=== PATIENT | female | born 1940 | race Caucasian/White ===

== ENCOUNTER → 2020-08-10 | Outpatient (CLI) | payer MEDICARE, BC | END | disposition home or self-care (01) | LOC: LABPAT 11:27 | PROVIDERS: ATTEND Orthopaedic Surgery | DX: Z01.812 Encounter for preprocedural laboratory examination (principal) | CPT/HCPCS: 87070 ==

== ENCOUNTER 2020-08-17 08:11 | Day surgery (SDC) | payer MEDICARE, BC ==
[2020-08-11 14:59] VITALS: BMI 31.1
--- NOTE | 2020-08-16 12:06 | HP ---
HISTORY AND PHYSICAL REASON FOR ADMISSION: Surgery scheduled for 08/17/2020 HISTORY OF PRESENT ILLNESS: Marlene Hansen is a 79-year-old patient seen with progressive right knee pain. Options for treatment were discussed with her. She elected to proceed with right total knee arthroplasty. Consent was obtained. Clearance was provided by Dr. Denson. PAST MEDICAL HISTORY: Hypertension, hypothyroidism, Hyperlipidemia. PAST SURGICAL HISTORY: Appendectomy, cholecystectomy. MEDICATIONS ARE: Amlodipine, levothyroxine, lisinopril, atorvastatin, tramadol. ALLERGIES: None. SOCIAL HISTORY: She denies tobacco use. PHYSICAL EVALUATION OF THE RIGHT KNEE: Range of motion 0-120. Mild effusion. Tenderness along the medial compartment. Crepitus medial patellofemoral compartments with range of motion. Pain with patellofemoral compression. Ligaments stable. Hip rotation is without pain. Her distal neurovascular exam is intact. RADIOGRAPHS: Right knee radiographs reveal severe osteoarthritic changes. IMPRESSION: 1. Right knee osteoarthritis. 2. Hyperlipidemia. 3. Hypothyroidism. PLAN: Right total knee arthroplasty. Surgery 08/17/2020. MMODL / IJN: [id number] /
[~2020-08-17 08:11] MED LIST: ACETAMINOPHEN TAB 500 MG TAB PO PRN; DEXAMETHASONE SOD PHOSPHATE 4 MG/ML 1 ML VIAL IV ONE; LIDOCAINE 1% (10MG/ML) FOR IV START INTRADERMA PRN; MELOXICAM 7.5 MG TAB PO PRN; MIDAZOLAM 2 MG/2 ML VIAL IV PRN; ONDANSETRON 4 MG/2 ML VIAL IVP ONE; ROPIVACAINE/EPI/CLONIDINE/KET 50 ML SYRINGE MISCELLANE PRN; TRANEXAMIC ACID 1,000 MG in SODIUM CHLORIDE 0.9% 100 ML IVPB PRN; fentaNYL (PF) 50 MCG/ML 2 ML AMP IVP PRN
[2020-08-17] MEDS: LACTATED RINGERS 1,000 ML IV SCH ×2 (09:26→18:02)
[2020-08-17] MEDS ORDERED: MIDAZOLAM 2 MG/2 ML VIAL IVP ONE (09:45)
[2020-08-17] MEDS ORDERED: PROPOFOL 10 MG/ML 20 ML VIAL IV ONE (10:00)
[2020-08-17] MEDS ORDERED: ROPIVACAINE 5 MG/ML 30 ML VIAL ONE (10:00)
[2020-08-17] MEDS ORDERED: MIDAZOLAM 2 MG/2 ML VIAL ONE (10:00)
[2020-08-17] MEDS ORDERED: fentaNYL (PF) 50 MCG/ML 2 ML AMP ONE (10:00)
--- NOTE | 2020-08-17 10:51 | P.ANPRN ---
Procedure Note - Anesthesia - Nerve Block Performed Right Adductor Canal Infusion Time Out Performed: Yes Date of Procedure: 08/17/20 Location of Patient: PreOp Indication: Acute Post-Operative Pain, Requested by Surgeon Sedation Type: Sedate with meaningful contact maintained Preparation: Sterile Prep, Sterile Dressing Position: Supine Catheter: Indwelling Needle Types: [place] Needle Gauge: 21 Ultrasound used to visualize needle placement: Yes Ultrasound used to observe medication spread: Yes Blood Aspirated: No Pain Paresthesia on Injection Noted: No Resistance on Injection: Normal Image Stored and Saved: Yes Events: Uneventful and Well Tolerated (ropi .5% 20 cc plus dexamethason 4mg)
--- NOTE | 2020-08-17 10:58 | P.ANPRN ---
Procedure Note - Anesthesia - Nerve Block Performed Right [place] Single Time Out Performed: Yes Date of Procedure: 08/17/20 Procedure Start Time: 09:54 Procedure Stop Time: 09:58 Location of Patient: PreOp Indication: Acute Post-Operative Pain, Requested by Surgeon Sedation Type: Sedate with meaningful contact maintained Preparation: Sterile Prep Position: Supine Needle Types: [place] Needle Gauge: 21 Ultrasound used to visualize needle placement: Yes Ultrasound used to observe medication spread: Yes Blood Aspirated: No Pain Paresthesia on Injection Noted: No Resistance on Injection: Normal Image Stored and Saved: Yes Events: Uneventful and Well Tolerated (ropi .5% 20cc)
[2020-08-17] MEDS ORDERED: HYDROmorphone 0.5 MG/0.5 ML SYRINGE IVP PRN ×2 (11:42)
[2020-08-17] MEDS ORDERED: NALOXONE 0.4 MG/ML 1 ML VIAL IV PRN (11:42)
[2020-08-17] MEDS ORDERED: HYDROmorphone 0.2 MG/1 ML SYRINGE IVP PRN (11:42)
[2020-08-17] MEDS ORDERED: ONDANSETRON 4 MG/2 ML VIAL IVP PRN (11:42)
[2020-08-17] MEDS ORDERED: HYDROcodone/APAP 5-325MG 1 EACH TAB PO PRN (11:42)
--- NOTE | 2020-08-17 11:42 | P.OP ---
Date of Procedure: 08/17/20 Preoperative Diagnosis: Right knee osteoarthritis Postoperative Diagnosis: Right knee osteoarthritis Procedure(s) Performed: Right total knee arthroplasty Implants: 1. Depuy attune size 5 narrow right cruciate retaining cemented femur 2. Depuy attune size 5 fixed bearing cemented tibial baseplate 3. Depuy attune size 5 fixed bearing cruciate retaining 12 mm polyethylene tibial insert 4. Depuy attune 35 mm all polyethylene cemented patella Anesthesia: local (Adductor canal catheter, I pack block), spinal Surgeon: Juventino Dietz Geriatrician #1: Pb Escamilla Estimated Blood Loss (ml): 50 Pathology: other (Bone) Condition: stable Disposition: PACU Indications for Procedure: 79-year-old patient seen with symptomatic right knee osteoarthritis. After treatment options were discussed, she elected to proceed with total knee arthroplasty Operative Findings: See description of procedure Description of Procedure: Patient was taken to the operative suite after having an adductor canal catheter placed by the department of anesthesia. Patient underwent a [] anesthetic by the department of anesthesia. Patient was given preoperative IV intake antibiotics and TXA. A well-padded tourniquet was placed about the [] lower extremity. The lower extremity was then prepped and draped in the normal sterile orthopedic fashion. The extremity was elevated, a tourniquet was insufflated to 300. A standard anterior incision was made sharply through skin. Dissection was taken down through the subcutaneous soft tissues down to the extensor mechanism. A medial arthrotomy was performed, patella was everted and knee was flexed. There was advanced osteoarthritis noted. I introduced my distal intramedullary femoral drill. I then introduced the distal femoral cutti ng jig. Castillo FREEMAN secured the cutting jig with 2 pins. I held retractors in position while Castillo FREEMAN performed the distal femoral resection through the guide area we now removed her distal femoral cutting guide. We now placed our 4-in-1 femoral cutting block and positioned and it was secured with 2 pins by Castillo FREEMAN while I held the block in position. The distal femoral finishing was now completed. A proximal tibial cutting guide was positioned. I held the guide in the appropriate position with both hands well Castillo FREEMAN inserted stabilizing pins into the guide. Proximal tibial cut was made. We now placed a trial femoral component into position, along with an appropriate size tibial tray and insert. We now took the knee through range of motion and had full extension good flexion and good overall soft tissue balance noted. The patella was everted and stabilized with 2 towel clips held by Castillo FREEMAN while I performed a flush with patellar quad tendon utilizing a fresh sawblade. We templated the patella, appropriate drill holes were made. An appropriate trial patella was positioned, knee was taken through full range of motion with the patella tracking very nicely. The trial patella was removed. Drill holes were made through the femoral component. All trial components were removed after marking off the appropriate rotation of the tibia. Retractors were now positioned along the proximal tibia. An appropriate keel punch was made with the appropriate size tibial guide by myself on Castillo FREEMAN assisted by holding retractors. At this point appropriate size implants were chosen and opened. The joint was irrigated copiously with pulse lavage mechanical irrigation. The posterior capsule was infiltrated with local analgesic. The wound was irrigated with pulse lavage mechanical irrigation. We mixed antibiotic methylmethacrylate. We placed the knee into flexion. We placed multiple retractors assisted by Castillo FREEMAN to expose the proximal tibia. Once the methyl methacrylate was ready, the tibial component was cemented into place removing any excess methylmethacrylate form by both myself and Castillo FREEMAN. The femoral component was cemented into place removing the removing any excess methylmethacrylate performed by both myself and Castillo FREEMAN. We then inserted the appropriate size polyethylene tibial insert. We made sure that it was locked into position. We took the knee into full extension, and then back in a flexion making sure we had removed any excess methylmethacrylate. The patellar component was then cemented down and secured with clamp. Excess methylmethacrylate removed. We kept the knee in full extension, patellar clamp in position until methylmethacrylate had hardened. Once it had hardened the patellar clamp was removed. The knee was taken through full range of motion. The patella tracked nicely. There was good soft tissue balancing. The tourniquet was now released. Additional hemostasis was achieved via electrocautery. A second gram of TXA was given. The wound again was irrigated with pulse lavage mechanical irrigation. The superficial soft tissues were infiltrated local analgesic. The extensor mechanism was repaired with Ethibond. We checked the repair with range of motion and it was stable. The subcutaneous soft tissues were repaired with Vicryl in layers. The skin was approximated with pernio/Dermabond. Sterile dressings were applied followed by loose web roll and Arnie bandage. The patient was transferred to a bed, and taken to recovery in stable and satisfactory condition. Castillo FREEMAN assisted with this complex procedure.
[2020-08-17] MEDS ORDERED: LACTATED RINGERS 1,000 ML IV ONE (11:53)
[2020-08-17] MEDS ORDERED: ROPIVACAINE 0.2%-NS ON-Q PUMP 2 MG/ML EACH MISCELLANE ONE (12:18)
--- NOTE | 2020-08-17 13:38 | XR ---
EXAMINATION TYPE: XR knee limited RT DATE OF EXAM: 08/17/2020 CLINICAL HISTORY: Right knee pain and arthritis status post total knee replacement. TECHNIQUE: Portable AP and crosstable lateral views of the right knee are obtained immediately posto peratively. COMPARISON: Outside right knee x-ray July 10, 2020 FINDINGS: Metallic hardware from total right knee arthroplasty is seen and appears satisfactory in a lignment and position. There is evidence of recent surgery with diffuse subcutaneous gas and soft ti ssue swelling noted. Improved alignment after replacement noted. IMPRESSION: METALLIC HARDWARE FROM TOTAL RIGHT KNEE ARTHROPLASTY IS SATISFACTORY IN ALIGNMENT.
[2020-08-17] MEDS: HYDROcodone/APAP 7.5-325MG 1 EACH TAB PO PRN ×2 (15:48→21:18)
[2020-08-17] MEDS: SODIUM CHLORIDE 0.9% 1,000 ML IV SCH (15:51)
[2020-08-17] MEDS ORDERED: LISINOPRIL-HCTZ 20-12.5 MG 1 EACH TAB PO SCH (21:00)
[2020-08-17] MEDS ORDERED: SENNOSIDES-DOCUSATE SODIUM 1 EACH TAB PO SCH (21:00)
[2020-08-17] MEDS ORDERED: CYCLOBENZAPRINE 5 MG TAB PO SCH (21:00)
[2020-08-17] MEDS: ENOXAPARIN 30 MG/0.3 ML SYRINGE SQ SCH (23:35)
[2020-08-18] MEDS: HYDROcodone/APAP 7.5-325MG 1 EACH TAB PO PRN ×2 (02:21→12:15)
[2020-08-18 04:41] VITALS: BP 109/70; PULSE 68; RESP 18; TEMP 97.8
[2020-08-18 05:27] LABS: Basophils % (A) 0 %; Eosinophils % (A) 0 %; HCT 37.7 % (34.0-46.0); HGB 12.7 gm/dL (11.4-16.0); Lymphocytes # (A) 1.2 k/uL (1.0-4.8); Lymphocytes % (A) 8 %; MCH 31.7 pg (25.0-35.0); MCHC 33.6 g/dL (31.0-37.0); MCV 94.3 fL (80.0-100.0); Mean Platelet Volume 7.8; Monocytes # (A) 0.8 k/uL (0-1.0); Monocytes % (A) 6 %; Neutrophils # (A) 12.1 k/uL (1.3-7.7); Neutrophils % (A) 85 %; Platelet Count 273 k/uL (150-450); RDW 12.1 % (11.5-15.5); WBC 14.1 k/uL (3.8-10.6)
[2020-08-18] MEDS ORDERED: LEVOTHYROXINE 50 MCG TAB PO SCH (06:30)
[2020-08-18] MEDS ORDERED: amLODIPine 2.5 MG TAB PO SCH (09:00)
[2020-08-18] MEDS ORDERED: ATORVASTATIN 10 MG TAB PO SCH (09:00)
--- NOTE | 2020-08-18 09:01 | P.PN ---
Progress Note - Text 08/18/20 653a m Femur status post total knee replacement by Dr. Dietz. Patient has an On-Q pump for postop pain control with the solution running at 8 mL an hour with a VAS of 4.. Pain is primarily located in the posterior aspect of the knee, patient is ambulating and exercising. Dressing clean dry and intact. Plan to continue On-Q pump infusion
--- NOTE | 2020-08-18 09:52 | P.PN ---
Subjective Progress Note Date: 08/18/20 Principal diagnosis: Status post right total knee arthroplasty Patient was examined today at bedside, she is resting comfortably in her hospital bed. She is done very well physical therapy. She is urinating with no difficulties. She denies any headaches, lightheadedness, chest pain or shortness of breath. Objective - Vital Signs Vital signs: Vital Signs Temp 97.8 F 08/18/20 04:40 Pulse 68 08/18/20 04:40 Resp 18 08/18/20 04:40 BP 109/70 08/18/20 04:40 Pulse Ox 95 08/18/20 04:40 Intake & Output 08/17/20 08/18/20 08/18/20 18:59 06:59 18:59 Intake Total 1200 1600 Output Total 50 Balance 1150 1600 Weight 76.158 kg Intake: IV 1200 Intake, IV Titration 600 Amount Sodium Chloride 0.9% 1, 600 000 ml @ 50 mls/hr IV . Q20H [facility] Rx#:[id number] Oral 1000 Output: Estimated Blood Loss 50 Other: Voiding Method Toilet Toilet # Voids 1 3 - Exam Right lower extremity: Incision is clean, dry, and intact. The foam dressing is in good condition. There is minimal soft tissue swelling and ecchymosis surrounding the medial and lateral aspects of the incision. Calf is soft, no tenderness with palpation. Plantar flexion, dorsiflexion, EHL, FHL are intact. Sensory exam to light touch throughout the extremity is intact, dorsal pedis pulses 2+. - Labs CBC & Chem 7: 08/18/20 04:51 Labs: Abnormal Lab Results - Last 24 Hours (Table) 08/18/20 Range/Units 04:51 WBC 14.1 H (3.8-10.6) k/uL Neutrophils # 12.1 H (1.3-7.7) k/uL Assessment and Plan Assessment: Postoperative day #1 status post right total knee arthroplasty Plan: Pain control, plan for discharge home on [place] 7.5 mg/325 mg GI and DVT prophylaxis, aspirin 81 mg twice a day for a month Wound care instructions were discussed Ice and elevating techniques discussed Home physical therapy and nursing after discharge Medical recommendations Plan for discharge home today Time with Patient: Less than 30
--- NOTE | 2020-08-18 09:56 | P.DS ---
Providers Date of admission: 08/17/2020 Expected date of discharge: 08/18/20 Attending physician: Juventino Dietz Consults: 08/17/20 11:42 Consult Physician Routine Consulting Provider: Paras Coleman Consult Reason/Comments: medical management Do you want consulting provider notified?: Yes Primary care physician: Ari Denson [facility] Course: Date of admission: 08/17/2020 Date of discharge: 08/18/2020 Admission diagnosis: Status post right total knee arthroplasty Discharge diagnosis: Same Attending physician: Dr. Dietz Surgical procedures: Right total knee arthroplasty Brief history: Patient is a 79-year-old female with a history of is a primary right knee osteoarthritis. At this point patient has failed conservative treatment measures and has opted to proceed with a elective right total knee arthroplasty. Hospital course: Details of patient's surgery can be found in operative report. Patient tolerated the procedure well and was subsequently transported to orthopedic floor. Patient's orthopeidc and medical care was provided daily. Patient had daily laboratory tests performed for evaluation of overall blood counts. Patient had daily physical therapy to include strengthening range of motion as well as education with walker ambulation. Patient was treated with Lovenox for their postoperative DVT prophylaxis during their inpatient stay. Ruthie fuentes was noted to have a relatively uneventful postoperative course. Patient reported satisfactory pain control with oral pain medications by postoperative day 0. Patient showed satisfactory progress with physical therapy. Patient moved steadily through the program and had no difficulty meeting the goals by postoperative day 1. Given patient's otherwise satisfactory course and having met physical therapy goals, plan is to discharge patient home on postoperative day 1. Discharge condition/disposition: Patient will be discharged home in stable condition. Discharge medications: Instructions are given on resumption of patient's normal daily medications per primary care recommendation, in addition patient will be prescribed [place] 7.5 mg/325 mg, aspirin 81 mg. Discharge instructions: 1. Wound care and infection precautions, keep incision dry and covered while showering, no lotions, creams, moisturizers. No soaking, tubs, pools, hottubs. Do not scrub over the incision. 2. Weight-bear as tolerated with walker / cane until follow-up. 3. Ice and elevate when necessary. Do not exceed 20 minutes per hour with ice pack. 4. Utilize compression sleeve until seen at first follow up appointment. 5. Visiting nursing care. 6. Home physical therapy including home CPM. 7. Pain meds and anticoagulants per prescription. 8. Pain medication has potential to cause constipation. Increase oral fluid and fiber intake. Contact primary care provider if you have not had a bowel movement within 48 hours after discharge 9. No anti-inflammatory medication until discussed at first post operative visit, this including Motrin, Aleve, Mobic, Diclofenac. 10. Follow up in office at 2 weeks postop with Castillo Escamilla PA-C/Renny Sim 11. Follow up with your primary care doctor 7-10 days after discharge. 12. Contact [facility] with any questions, . Procedures: right total knee arthroplasty Patient Condition at Discharge: Good Plan - Discharge Summary Discharge Rx Participant: No New Discharge Prescriptions: New HYDROcodone/APAP 7.5-325MG [[place] 7.5] 1 each PO Q6HR PRN #28 tab PRN Reason: Pain Aspirin [Adult Low Dose Aspirin EC] 81 mg PO BID #60 tablet. No Action Lisinopril-Hctz 20-12.5 mg [Zestoretic 20-12.5] 1 tab PO HS Levothyroxine Sodium [Synthroid] 50 mcg PO QAM traMADol HCL 25 mg PO HS PRN PRN Reason: Pain amLODIPine [Norvasc] 2.5 mg PO QAM Rosuvastatin Calcium [Crestor] 5 mg PO DAILY Cyclobenzaprine [Flexeril] 5 mg PO HS Discharge Medication List Cyclobenzaprine [Flexeril] 5 mg PO HS 08/11/20 [History] Levothyroxine Sodium [Synthroid] 50 mcg PO QAM 08/11/20 [History] Lisinopril-Hctz 20-12.5 mg [Zestoretic 20-12.5] 1 tab PO HS 08/11/20 [History] Rosuvastatin Calcium [Crestor] 5 mg PO DAILY 08/11/20 [History] amLODIPine [Norvasc] 2.5 mg PO QAM 08/11/20 [History] traMADol HCL 25 mg PO HS PRN 08/11/20 [History] Aspirin [Adult Low Dose Aspirin EC] 81 mg PO BID #60 tablet. 08/18/20 [Rx] HYDROcodone/APAP 7.5-325MG [[place] 7.5] 1 each PO Q6HR PRN #28 tab 08/18/20 [Rx] Follow up Appointment(s)/Referral(s): [facility] [NON-STAFF] - 1 Week Pb Escamilla PAC [PHYSICIAN MULTIPLE DRILL OPERATOR] - 2 Weeks Activity/Diet/Wound Care/Special Instructions: Orthopedic Discharge Instructions: 1. Wound care and infection precautions, keep incision dry and covered while showering, no lotions, creams, moisturizers. No soaking, pools, hot tubs. Do not scrub over incision. 2. Weight-bear as tolerated with walker / cane until follow-up. 3. Ice and elevate when necessary. Do not exceed 20 minutes per hour with ice pack. 4. Utilize compression sleeve until seen at first follow up appointment. 5. Pain meds and anticoagulants per prescription. 6. Pain medication has potential to cause constipation. Increase oral fluid and fiber intake. Contact primary care provider if you have not had a bowel movement within 48 hours after discharge. 7. No anti-inflammatory medication until discussed at first post operative visit, this including Motrin, Aleve, Mobic, Diclofenac. 8. Follow up in office at 2 weeks postop with Castillo Escamilla PA-C/Renny Salomon PA-C 9. Follow up with your primary care doctor 7-10 days after discharge. 10. Contact [facility] with any questions, . Wound care instructions: 1. Keep incision covered and dry well-controlled dressing is in place 2. Okay to remove foam dressing on 08/28/2020 3. Please keep incision covered and dry even after foam dressing is removed and seen for first postop Discharge Disposition: HOME WITH HOME HEALTH SERVICES
[2020-08-18] MEDS: SODIUM CHLORIDE 0.9% 1,000 ML IV SCH (11:53)
[2020-08-18] MEDS: ENOXAPARIN 30 MG/0.3 ML SYRINGE SQ SCH (12:16)
--- NOTE | 2020-08-18 13:17 | P.CONS ---
History of Present Illness - Reason for Consult Hypertension - History of Present Illness Patient is a pleasant 79-year-old female admitted for right knee arthroplasty. Patient's access underwent surgery patient doesn't have any pain at this time. Patient denied any fever chills nausea vomiting dysuria. Patient did pass gas patient pain is well-controlled is being discharged today patient is bit hypote nsive which is expected in the perioperative. Patient is on 2 antidepressive medications one of which includes Norvasc which is being held and patient was asked to hold this medication until she sees to Medicare physician and patient was asked to check the blood pressures on by as a day basis at home. Review of Systems REVIEW OF SYSTEMS: CONSTITUTIONAL: No fever, no malaise, no fatigue. HEENT: No recent visual problems or hearing problems. Denied any sore throat. CARDIOVASCULAR: No chest pain, orthopnea, PND, no palpitations, no syncope. PULMONARY: No shortness of breath, no cough, no hemoptysis. GASTROINTESTINAL: No diarrhea, no nausea, no vomiting, no abdominal pain. NEUROLOGICAL: No headaches, no weakness, no numbness. HEMATOLOGICAL: Denies any bleeding or petechiae. GENITOURINARY: Denies any burning micturition, frequency, or urgency. MUSCULOSKELETAL/RHEUMATOLOGICAL: Denies any joint pain, swelling, or any muscle pain. ENDOCRINE: Denies any polyuria or polydipsia. The rest of the 14-point review of systems is negative. Past Medical History Past Medical History: Hyperlipidemia, Hypertension, Osteoarthritis (OA), Thyroid Disorder History of Any Multi-Drug Resistant Organisms: None Reported Past Surgical History: Appendectomy, Cholecystectomy, Hysterectomy, Tonsillectomy Past Anesthesia/Blood Transfusion Reactions: No Reported Reaction Smoking Status: Former smoker - Past Family History Father Family Medical History: Cancer Additional Family Medical History / Comment(s): lung Sister(s) Family Medical History: Cancer Additional Family Medical History / Comment(s): cervical Medications and Allergies Home Medications Medication Instructions Recorded Confirmed Type Cyclobenzaprine [Flexeril] 5 mg PO HS 08/11/20 08/17/20 History Levothyroxine Sodium [Synthroid] 50 mcg PO QAM 08/11/20 08/17/20 History Lisinopril-Hctz 20-12.5 mg 1 tab PO HS 08/11/20 08/17/20 History [Zestoretic 20-12.5] Rosuvastatin Calcium [Crestor] 5 mg PO DAILY 08/11/20 08/17/20 History amLODIPine [Norvasc] 2.5 mg PO QAM 08/11/20 08/17/20 History traMADol HCL 25 mg PO HS PRN 08/11/20 08/17/20 History Aspirin [Adult Low Dose Aspirin EC] 81 mg PO BID #60 tablet. 08/18/20 Rx HYDROcodone/APAP 7.5-325MG [[place] 1 each PO Q6HR PRN #28 tab 08/18/20 Rx 7.5] Allergies Allergy/AdvReac Type Severity Reaction Status Date / Time ciprofloxacin [From Cipro] AdvReac stomach Verified 08/17/20 08:54 pains Physical Exam Vitals: Vital Signs Temp Pulse Resp BP Pulse Ox 08/18/20 04:40 97.8 F 68 18 109/70 95 08/17/20 20:43 97.9 F 82 16 144/77 93 L 08/17/20 20:00 82 16 08/17/20 16:42 118/76 08/17/20 14:14 97.5 F L 62 18 111/76 96 08/17/20 13:45 59 L 16 129/65 96 08/17/20 13:30 61 16 125/59 98 08/17/20 13:15 57 L 16 131/57 98 Intake and Output 08/17/20 08/18/20 08/18/20 22:59 06:59 14:59 Intake Total 1600 Balance 1600 Intake: Intake, IV Titration 600 Amount Sodium Chloride 0.9% 1, 600 000 ml @ 50 mls/hr IV . Q20H [facility] Rx#:[id number] Oral 1000 Other: Voiding Method Toilet Toilet # Voids 1 3 PHYSICAL EXAMINATION: GENERAL: The patient is alert and oriented x3, not in any acute distress. Well developed, well nourished. HEENT: Pupils are round and equally reacting to light. EOMI. No scleral icterus. No conjunctival pallor. Normocephalic, atraumatic. No pharyngeal erythema. No thyromegaly. CARDIOVASCULAR: S1 and S2 present. No murmurs, rubs, or gallops. PULMONARY: Chest is clear to auscultation, no wheezing or crackles. ABDOMEN: Soft, nontender, nondistended, normoactive bowel sounds. No palpable organomegaly. MUSCULOSKELETAL: No joint swelling or deformity. EXTREMITIES: No cyanosis, clubbing, or pedal edema. NEUROLOGICAL: Gross neurological examination did not reveal any focal deficits. SKIN: No rashes. Results CBC & Chem 7: 08/18/20 04:51 Labs: Abnormal Lab Results - Last 24 Hours (Table) 08/18/20 Range/Units 04:51 WBC 14.1 H (3.8-10.6) k/uL Neutrophils # 12.1 H (1.3-7.7) k/uL Assessment and Plan Plan: -Hypertension: Patient is bit hypotensive today which is expected in the perioperative period further management of this hypertension as mentioned in the interval history -Hyperlipidemia patient the was resumed on statin hypothyroidism patient will continue levothyroxine
== END 2020-08-18 13:45 | disposition home health service (06) ==
LOC: OR 08:11 → 5NMEDONC 13:55 → OR 08-18 13:45
PROVIDERS: ATTEND Orthopaedic Surgery
DX: M17.11 Unilateral primary osteoarthritis, right knee (principal); I10 Essential (primary) hypertension; E03.9 Hypothyroidism, unspecified; E78.5 Hyperlipidemia, unspecified; M19.90 Unspecified osteoarthritis, unspecified site; Z20.822 Contact with and (suspected) exposure to COVID-19; Z79.82 Long term (current) use of aspirin; Z79.890 Hormone replacement therapy; Z79.899 Other long term (current) drug therapy; Z80.1 Family history of malignant neoplasm of trachea, bronchus and lung; Z80.49 Family history of malignant neoplasm of other genital organs; Z87.891 Personal history of nicotine dependence; Z88.1 Allergy status to other antibiotic agents
CPT/HCPCS: 97161; 64999; 64448; 76942; 85025; 88300; 87635; 73560; 27447; C1776; C1713; J2250; J1100; J0690 ×2; J2405; J1650 ×2; J1170; J2795